=== PATIENT | male | born 1975 | race Caucasian/White ===

== ENCOUNTER 2017-05-22 11:02 | Emergency (ER) | payer BC ==
[2017-05-22 11:18] VITALS: BP 126/85; PULSE 68; RESP 18; TEMP 97.6; O2SAT 99
== END 2017-05-22 11:37 | disposition home or self-care (01) ==
LOC: ED 11:02
DX: T63.461A Toxic effect of venom of wasps, accidental (unintentional), initial encounter (principal)
CPT/HCPCS: 99282